=== PATIENT | male | born 1960 | race Caucasian/White ===

== ENCOUNTER 2024-03-10 14:07 | Emergency (ER) | payer OTHER, SELFPAY ==
[2024-03-10] VITALS (7 sets, daily range): BP systolic 153–169; BP diastolic 93–102
[2024-03-10 14:47] LABS: % Basophils 0.8 % (0-2); % Eosinophils 1.9 % (0-6); % Immature Granulocytes 0.3 % (0-0.5); % Lymphocytes 21.6 % (20.5-51.1); % Monocytes 9.7 % (1.7-9.3); % Neutrophils 65.7 % (42.2-75.2); Absolute Basophils 0.1 10^3/uL (0-0.2); Absolute Eosinophils 0.1 10^3/uL (0-0.7); Absolute Lymphocytes 1.4 10^3/uL (1.2-3.4); Absolute Monocytes 0.6 10^3/uL (0.1-0.6); Absolute Neutrophils 4.2 10^3/uL (1.4-6.5); Hematocrit 42.7 % (39.0-52.0); Hemoglobin 14.5 g/dL (13.0-18.0); Mean Corpuscular Hgb 29.8 pg (27.0-31.0); Mean Corpuscular Volume 87.9 fL (80.0-94.0); Mean Platelet Volume 8.7 fL (7.4-10.4); Nucleated Red Blood Cells % 0 % (-); Platelet Count 244 10^3/uL (130-400); Red Blood Cell Count 4.86 10^6/uL (4.70-6.10); Red Cell Dist. Width 13.4 % (11.5-14.5); White Blood Cell Count 6.4 10^3/uL (4.8-10.8)
[2024-03-10 15:02] LABS: ALT (SGPT) 16 U/L (0-50); AST (SGOT) 19 U/L (17-59); Albumin 4.3 g/dl (3.5-5.0); Alkaline Phosphatase 63 U/L (38-126); Blood Urea Nitrogen 17 mg/dl (9-20); Calcium 9.5 mg/dl (8.4-10.2); Carbon Dioxide 28 mmol/L (22-30); Chloride 104 mmol/L (98-107); Glucose 99 mg/dl (70-99); Potassium 4.4 mmol/L (3.5-5.1); Sodium 139 mmol/L (135-145); Total Bilirubin 0.6 mg/dl (0.2-1.3); Total Protein 7.4 g/dl (6.3-8.2); eGFR > 60.00
[2024-03-10 15:14] LABS: Troponin I < 0.012 ng/ml
[2024-03-10 18:12] LABS: Troponin I < 0.012 ng/ml
--- NOTE | 2024-03-17 10:27 | ED.GENMED ---
History of Present Illness
General
Chief Complaint: Chest Pain
Source: patient and spouse
Exam Limitations: other (Some speech difficulty)
Time Seen by Provider: 03/10/24 16:37
Travel History
Have you had any contact with someone who has COVID-19?: No
Do you have any symptoms of coronavirus? Fever > 100 degrees, chills, cough, shortness of breath, sore throat, loss of taste or smell, muscle aches, or headache?: No
History of Present Illness
History of Present Illness:
63-year-old male who presents for evaluation after he had somewhat of an odd sensation in the left chest. Patient states that is difficult to describe did not feel quite normal. He has been treated for brain cancer and has had resection. Family
called their doctor who advised him come for evaluation. On my evaluation patient feels better. Denies seizure activity. No weakness. Just was not himself. He is unable to describe whether this was true pain or not. does not suspect
seizure but patient just did not seem himself.
Past History
Past History
ED Past Medical History: Cancer (brain ca), HTN, Hypercholesterolemia and Seizures
ED Past Surgical History: Other (craniotomy, tumor resection)
Social History
Tobacco: Non-smoker
Alcohol: Occasional (wine with dinner 4-5x/week)
Drug: None
Personal:
Living: with family
Employment: Employed
Phy Exam
Physical Exam
Physical Exam:
CONSTITUTIONAL Patient alert and oriented to person, place and time. Well-appearing. Vital signs reviewed.
HEAD atraumatic, normocephalic.
EYES eyelids normal to inspection, Pupils equally round and reactive to light, Extraocular muscles intact, Conjunctiva normal, Sclera normal.
NECK normal range of motion, Trachea midline, no jugular venous distention.
RESPIRATORY CHEST No respiratory distress noted, Chest expansion equal, Bilateral breath sounds clear.
CARDIOVASCULAR regular rate and rhythm, Heart sounds normal.
ABDOMEN abdomen nontender, Bowel sounds normal. No distention.
BACK normal inspection, no obvious deformities
UPPER EXTREMITY range of motion normal, Motor strength normal, no cyanosis, no edema.
LOWER EXTREMITY range of motion normal, Motor strength normal, no cyanosis, no edema.
NEURO mild to moderate aphasia noted, Hector coma scale 15, Memory normal, Cranial Nerves intact to screening exam.
SKIN skin warm, dry, and normal in color.
PSYCHIATRIC patient oriented to person place and time, Normal affect.
Scores
Heart Score for Chest Pain Patients
STEMI patient?: Not applicable
Course
Orders/Labs/Results
Orders:
Orders
03/10/24 14:23
Electrocardiogram (*1) Urgent
Reason for Study: Chest Pain
Cardiac Monitoring- Treatment ONCE
EKG- Treatment ONCE
IV Insert/Care/Rem.- Treatment PRN
O2 Therapy [RESP] Urgent
Titrate/Wean O2 to maintain O2 sat greater than (%): 90
Special Instructions: Maintain sats >/=90%
Pulse Ox/spot Check [RESP] Urgent
Quantity: 1
Special Instructions: ON ROOM AIR
03/10/24 14:39
Complete Blood Count/With Diff Urgent
Comprehensive Metabolic Panel Urgent
Troponin I Urgent
03/10/24 17:08
CT Head W/o Iv Contrast Urgent
Comment:
Reason For Exam: hypertension, h/o glioblastoma, ? seizure
03/10/24 17:39
Troponin I Urgent
Abnormal Lab Results
03/10/24
14:39
Monocytes % 9.7 H %
(1.7-9.3)
03/10/24 14:39
03/10/24 14:39
Vital Signs
Initial and Last Documented VS:
Initial Vital Signs
Temp Pulse Resp BP Pulse Ox
97.3 F 77 16 168/95 98
03/10/24 14:19 03/10/24 14:19 03/10/24 14:19 03/10/24 14:19 03/10/24 14:19
Last Documented Vital Signs
Temp Pulse Resp BP Pulse Ox
97.3 F 76 22 153/102 97
03/10/24 14:19 03/10/24 19:55 03/10/24 19:55 03/10/24 19:57 03/10/24 17:45
MDM/Problems Addressed
MDM/Problems Addressed:
Brain CA, atypical chest pain
*Pulse Oximetry
Patient hypoxic: no
*EKG
Interpreted by ED Provider?: Yes
Interpretation: normal
Rate: normal
Rhythm: sinus
[place]: normal axis
QRS Pattern: normal QRS
Ischemia: no ischemia
*Protective Services Case Worker Interpretation
Rate: normal
Interpretation: normal
Rhythm: sinus
*Critical Care Note
Total Time (30-74mins, 75-104mins- exclusive of procedures): Not Applicable
Data Reviewed
Source: patient and spouse
Prescriptions/Medications Considered But Not Given:
Consider CTA of the chest but no clinical concern for PE. No hypoxia. No tachypnea. No tachycardia. No shortness of breath.
Patient Management
Escalation/DeEscalation of care consider admission/obs:
Patient observed. No further symptoms and feels well. Repeat troponin negative. Vital signs stable. He is a little bit hypertensive but will refer to specialist. will watch him closely and return progressive symptoms
ED Attending Note
-
Portions of this chart may have been created with voice recognition software.� Occasional wrong word or��sound alike� substitutions may have occurred due to the inherent limitations of voice recognition software.
Discharge Plan
Departure
Patient Disposition: Home (Routine Discharge)
Date of Disposition: 03/10/24
Time of Disposition: 20:00
Patient with high blood pressure during this ER visit?: Yes
Discharge Problem:
Chest pain
Instructions: Chest Pain PCP Follow Up
Prescriptions:
No Action
rosuvastatin 5 mg Tablet
5 mg PO DAILY
levetiracetam 500 mg Tablet
1,000 mg PO BID Qty: 120 0RF
losartan 25 mg Tablet
25 mg PO DAILY Qty: 30 0RF
Referrals:
Patric Hobson DO [Family Provider] -
Activity Restrictions/Additional Instructions:
Please see your doctor in the next 24 to 48 hours for follow-up and reevaluation. Return immediately for worsening symptoms, seizure-like activity, chest pain, shortness of breath, weakness of any kind or any other concerns
Interventions
Interventions:
*Risk Screen - Suicide Last Done: 03/10/24 15:54
*General Assessment Last Done: 03/10/24 15:54
*Neglect/Abuse Screening Last Done: 03/10/24 15:54
ED- Fall Risk Assessment Last Done: 03/10/24 20:11
*ED COVID-19 Vaccine History Last Done: 03/10/24 15:40
*Nursing Disposition Last Done: 03/10/24 20:11
ED- Cardiac Assessment Last Done: 03/10/24 15:54
Discharge Date and Time
Discharge Date/Time: 03/10/24 20:12
Print Language: HONG KONGER
== END 2024-03-10 20:12 | disposition home or self-care (01) ==
LOC: EMR 14:07
PROVIDERS: Emergency Medicine; EMERGENCY PHYSICIAN Emergency Medicine; FAMILY PHYSICIAN Family Medicine
DX: R07.89 Other chest pain (principal); I10 Essential (primary) hypertension
CPT/HCPCS: 99285; 70450; 80053; 84484; 85025; 93005

== ENCOUNTER 2024-05-20 10:47 | Emergency (ER) | payer OTHER, SELFPAY ==
[2024-05-20 10:56] VITALS: BP 122/75
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
[2024-05-20 12:08] VITALS: BMI 26.1
[2024-05-20 12:15] VITALS: BP 119/82
[2024-05-20] MEDS: MORPHINE SULFATE 2 MG IV (12:15)
[2024-05-20 12:20] LABS: % Basophils 0.2 % (0-2); % Eosinophils 0.4 % (0-6); % Immature Granulocytes 0.3 % (0-0.5); % Lymphocytes 11.2 % (20.5-51.1); % Monocytes 6.7 % (1.7-9.3); % Neutrophils 81.2 % (42.2-75.2); Absolute Monocytes 0.6 10^3/uL (0.1-0.6); Absolute Neutrophils 7.4 10^3/uL (1.4-6.5); Hematocrit 37.4 % (39.0-52.0); Hemoglobin 12.8 g/dL (13.0-18.0); Mean Corp Hgb Conc. 34.2 g/dL (33.0-37.0); Mean Corpuscular Hgb 30.1 pg (27.0-31.0); Mean Platelet Volume 9.1 fL (7.4-10.4); Nucleated Red Blood Cells % 0 % (-); Platelet Count 196 10^3/uL (130-400); Red Blood Cell Count 4.25 10^6/uL (4.70-6.10); Red Cell Dist. Width 14.1 % (11.5-14.5); White Blood Cell Count 9.2 10^3/uL (4.8-10.8)
[2024-05-20 12:29] LABS: INR 1.03; PT 13.3 Sec (11.4-14.6)
[2024-05-20 12:31] LABS: ALT (SGPT) 17 U/L (0-50); AST (SGOT) 24 U/L (17-59); Albumin 3.8 g/dl (3.5-5.0); Alkaline Phosphatase 47 U/L (38-126); Blood Urea Nitrogen 36 mg/dl (9-20); Calcium 9.6 mg/dl (8.4-10.2); Carbon Dioxide 29 mmol/L (22-30); Chloride 106 mmol/L (98-107); Estimated Creatinine Clearance 67 ml/min; Glucose 108 mg/dl (70-99); Potassium 5.1 mmol/L (3.5-5.1); Sodium 137 mmol/L (135-145); Total Bilirubin 0.7 mg/dl (0.2-1.3); Total Protein 6.3 g/dl (6.3-8.2); eGFR > 60.00
[2024-05-20 13:00] VITALS: BP 123/88
[2024-05-20 16:40] VITALS: BP 146/103
== END 2024-05-20 17:23 | disposition home or self-care (01) ==
LOC: EMR 10:47
PROVIDERS: EMERGENCY PHYSICIAN Student in an Organized Health Care Education/Training Program; FAMILY PHYSICIAN Family Medicine
DX: S06.5XAA Traumatic subdural hemorrhage with loss of consciousness status unknown, initial encounter (principal); V18.9XXA Unspecified pedal cyclist injured in noncollision transport accident in traffic accident, initial encounter; Y93.55 Activity, bike riding; I10 Essential (primary) hypertension; E78.00 Pure hypercholesterolemia, unspecified; G40.909 Epilepsy, unspecified, not intractable, without status epilepticus
CPT/HCPCS: 99284; 96374; 70450; 71260; 72125; 74177; 80053; 85025; 85610; Q9967

== ENCOUNTER → 2024-07-30 10:18 | Outpatient (REF) | payer OTHER, SELFPAY | LOC: RAD 10:18 | PROVIDERS: ATTENDING PHYSICIAN Family Medicine; REFERRING PHYSICIAN Internal Medicine Hematology & Oncology | DX: M89.8X1 Other specified disorders of bone, shoulder (principal) | CPT/HCPCS: 71046; 73000 ==